=== PATIENT | male | born 1990 | race Caucasian/White ===

== ENCOUNTER → 2016-10-01 | Day surgery (SDC) | payer OTHER ==
[2016-09-21 12:52] VITALS: Ht 165.1 cm; Wt 79.5 kg
[~2016-10-01] VITALS: Ht 165.1 cm; Wt 79.5 kg
[~2016-10-01] MED LIST: FENTANYL CITR 50 MCG/1 ML 5ML VIAL ONE; FEXO1TAB49 PO; METO50TA7 PO; MIDAZOLAM HCL 5 MG/ML 1 ML VIAL ONE; OMEP20CA9 PO; PRIM50TA29 PO; SNG10 PO; SODIUM CHLORIDE 0.9% 500ML 500 ML IV ONE
[2016-10-01 09:55] VITALS: TEMP 36.8
--- NOTE | 2016-10-01 10:04 | Endo History and Physical ---
History & Physical Date of Service: Oct 01, 2016. Chief Complaint: Abdominal pain, Melena Referring Physician: [facility] History of Present Illness 26 yo CM who presents for EGD secondary to abdominal pain and Melena. Past Surgical History Hx Cardiac Surgery: No Hx Internal Defibrillator: No Hx Pacemaker: No Hx Abdominal Surgery: No Hx of Implantable Prosthesis: No Hx Post-Op Nausea and Vomiting: No Hx Cancer Surgery: No Hx Thoracic Surgery: No Hx Orthopedic: No Hx Urinary Tract Surgery: No Family History None Social History Smoking Status: Never Smoker Hx Substance Use: No Hx Alcohol Use: Yes ("SELDOM") Allergies Coded Allergies: NO KNOWN DRUG ALLERGIES (Verified Allergy, Unknown, ., 09/21/16) Current Medications Reported Home Medications Medications Dose Route/Sig Max Daily Dose Days Date Category Melissa Allergy (Fexofenadine Hcl) 180 Mg Tab 1 Tab PO HS 14 09/21/16 Reported Prilosec (Omeprazole) 20 Mg Cap 20 Mg PO BID 09/21/16 Reported Toprol-Xl (Metoprolol Succinate) 50 Mg Tabcr 50 Mg PO HS 09/21/16 Reported Montelukast Sodium (Montelukast Sod) 10 Mg Tab 1 Tab PO HS 09/21/16 Reported Mysoline (Primidone) 50 Mg Tab 50 Mg PO HS 09/21/16 Reported Vital Signs Weight (Kilograms): 79.55 Height (Feet): 5 Height (Inches): 5 Date Time Temp Pulse Resp B/P Pulse Ox O2 Delivery O2 Flow Rate FiO2 10/01/16 09:55 36.8 73 18 146/85 99 Room Air Physical Exam General Appearance: WD/WN, no apparent distress Respiratory/Chest: Auscultation: breath sounds normal Cardiovascular: Heart Auscultation: RRR Abdomen: Bowel Sounds: normal Inspection & Palpation: soft, non-distended, no tenderness, guarding & rebound Assessment and Plan Assessment: 26 yo CM who presents for EGD secondary to abdominal pain and Melena. Plan: Proceed with EGD.
--- NOTE | 2016-10-01 10:49 | GI REPORT ---
Procedure Date: 10/01/2016 10:03 AM THIS REPORT HAS BEEN AMENDED Addendum Number: 1 Addendum Date: 10/01/2016 10:48:45 AM Patient did not receive MAC anesthesia. He received conscious sedation with divided doses of Versed 6mg and Fentanyl 100 micrograms IV. Procedure: Upper GI endoscopy Indications: Epigastric abdominal pain, Melena Medicines: Monitored Anesthesia Care Complications: No immediate complications. Estimated Blood Loss: Estimated blood loss: none. Procedure: Pre-Anesthesia Assessment: - Prior to the procedure, a History and Physical was performed, and patient medications and allergies were reviewed. The patient's tolerance of previous anesthesia was also reviewed. The risks and benefits of the procedure and the sedation options and risks were discussed with the patient. All questions were answered, and informed consent was obtained. Prior Anticoagulants: The patient has taken no previous anticoagulant or antiplatelet agents. ASA Grade Assessment: I - A normal, healthy patient. After reviewing the risks and benefits, the patient was deemed in satisfactory condition to undergo the procedure. After obtaining informed consent, the endoscope was passed under direct vision. Throughout the procedure, the patient's blood pressure, pulse, and oxygen saturations were monitored continuously. The Scope was introduced through the mouth, and advanced to the second part of duodenum. The upper GI endoscopy was accomplished without difficulty. The patient tolerated the procedure well. Findings: The esophagus was normal. Localized mild inflammation characterized by erythema was found in the gastric antrum. Biopsies were taken with a cold forceps for histology. The examined duodenum was normal. Impression: - Normal esophagus. - Gastritis. Biopsied. - Normal examined duodenum. Recommendation: - Resume previous diet. - Continue present medications. - Await pathology results. - Return to primary care physician as previously scheduled. Felixlana Walker DO 10/01/2016 10:48:20 AM This report has been signed electronically. Note Initiated On: 10/01/2016 10:03 AM Felix Shahriar Walker, DO 10/01/2016 10:50:22 AM This report has been signed electronically.
--- NOTE | 2016-10-01 10:51 | Discharge Instructions ---
Endoscopy Patient Instructions Date / Procedure(s) Performed Oct 01, 2016. EGD Allergy Information Coded Allergies: NO KNOWN DRUG ALLERGIES (Verified Allergy, Unknown, ., 09/21/16) Discharge Date / Findings Oct 01, 2016. Gastritis s/p biopsies Medication Instructions OK to resume all medications today as prescribed. Reported Home Medications Medications Dose Route/Sig Max Daily Dose Days Date Category Melissa Allergy (Fexofenadine Hcl) 180 Mg Tab 1 Tab PO HS 14 09/21/16 Reported Prilosec (Omeprazole) 20 Mg Cap 20 Mg PO BID 09/21/16 Reported Toprol-Xl (Metoprolol Succinate) 50 Mg Tabcr 50 Mg PO HS 09/21/16 Reported Montelukast Sodium (Montelukast Sod) 10 Mg Tab 1 Tab PO HS 09/21/16 Reported Mysoline (Primidone) 50 Mg Tab 50 Mg PO HS 09/21/16 Reported Provider Instructions Activity Restrictions - No exercising or heavy lifting for 24 hours. - Do not drink alcohol the day of the procedure. - Do not drive a car or operate machinery until the day after the procedure. - Do not make any important decisions or sign important papers in 24 hours after the procedure. Following Day: - Return to full activity which may include returning to work/school. Diet Start your diet with liquids and light foods (jello, soup, juice, toast). Then eat your usual diet if not nauseated. Treatment For Common After Affects For mild abdominal pain, bloating, or excessive gas: - Rest - Eat lightly - Lie on right side Follow-Up Information Follow-up with S as scheduled Anesthesia Information What You Should Know You have had a procedure that required some medicine to reduce anxiety and discomfort. This treatment is called moderate sedation. After receiving the treatment, you may be sleepy, but you will be able to breathe on your own. The effects of the treatment may last for several hours. Follow these instructions along with Activity/Diet recommendations noted above: * Do NOT do anything where dizziness or clumsiness would be dangerous. * Rest quietly at home today, then you can be up and about tomorrow. * Have a responsible person stay with you the rest of today. * You may have had an I.V. today. If so, you may take the dressing off later today. Recommendations Call your doctor if: * Trouble breathing * Continuous vomiting for more than 24 hours * Temperature above 101 degrees * Severe abdominal pain or bloating * Pain not relieved by pain medicine ordered * There is increased drainage or redness from any incision * A large amount of rectal bleeding greater than 2-3 tablespoons. (If you had a polyp/s removed or have hemorrhoids, a small amount of blood - from the rectum is to be expected.) * You have any unanswered questions or concerns. IN THE EVENT OF A SERIOUS EMERGENCY, GO TO THE NEAREST EMERGENCY ROOM Your discharge instructions were prepared by provider Felix Walker. Patient Instructions Signature Page Oj Mercedes Patient (or Guardian) Signature/Date: I have read and understand the instructions given to me by my caregivers. Caregiver/RN/Doctor Signature/Date: The above-named patient and/or guardian has received patient instructions on this date. + Original Patient Signature Page (only) stays with chart. Please make copy for patient.
[2016-10-01 11:12] VITALS: BP 123/83; PULSE 77; O2SAT 97
== END | disposition home or self-care (01) ==
LOC: C.GI 09:37
PROVIDERS: ATTEND Internal Medicine
DX: K92.1 Melena (principal); K29.70 Gastritis, unspecified, without bleeding; K31.89 Other diseases of stomach and duodenum